=== PATIENT | female | born 1965 | race Caucasian/White ===

== ENCOUNTER 2016-07-07 10:57 | Emergency (ER) | payer OTHER ==
[2016-07-07 11:03] VITALS: BP 143/90; PULSE 80; RESP 18; TEMP 97.9; O2SAT 98
--- NOTE | 2016-07-07 11:28 | ED PDOC ---
HPI: General Adult Time Seen by Provider: 07/07/16 11:06 Chief Complaint (Nursing): Abnormal Skin Integrity Chief Complaint (Provider): Abnormal Skin Integrity History Per: Patient History/Exam Limitations: no limitations Onset/Duration Of Symptoms: Days Current Symptoms Are (Timing): Still Present Severity: Mild Additional Complaint(s): Patient is a 51 year old female who presents to ED for a lump to her left axilla for 1 month. Patient states that the pain is mild but most present at night while trying to sleep. Denies fever, chills, drainage or warmth to the area. Notes she has not had a mammogram in 2 years due to insurance complications. Past Medical History Reviewed: Historical Data, Nursing Documentation, Vital Signs Vital Signs: Last Vital Signs Temp 97.9 F 07/07/16 11:02 Pulse 80 07/07/16 11:02 Resp 18 07/07/16 11:02 BP 143/90 07/07/16 11:02 Pulse Ox 98 07/07/16 13:06 - Medical History PMH: Asthma - Surgical History Surgical History: Appendectomy, Tonsillectomy - Family History Family History: States: CAD - Living Arrangements Living Arrangements: With Family - Allergies Allergies/Adverse Reactions: Allergies Allergy/AdvReac Type Severity Reaction Status Date / Time No Known Allergies Allergy Verified 07/07/16 11:10 Review of Systems ROS Statement: Except As Marked, All Systems Reviewed And Found Negative Constitutional: Negative for: Fever, Chills Cardiovascular: Negative for: Chest Pain Respiratory: Negative for: Shortness of Breath Gastrointestinal: Negative for: Nausea, Vomiting Musculoskeletal: Negative for: Arm Pain Skin: Positive for: Other (Left axilla lump). Negative for: Rash Physical Exam - Reviewed Nursing Documentation Reviewed: Yes Vital Signs Reviewed: Yes - Physical Exam Appears: Positive for: Non-toxic, No Acute Distress Skin: Positive for: Normal Color, Warm Eye Exam: Positive for: Normal appearance Neck: Positive for: Normal Extremity: Positive for: Normal ROM, Other (Left Axilla: (-) lumps, (-) erythema (-) warmth (-) tenderness ) Neurologic/Psych: Positive for: Alert, Oriented - ECG O2 Sat by Pulse Oximetry: 98 (RA) Pulse Ox Interpretation: Normal - Radiology X-Ray: Read By Radiologist (left axilla) X-Ray Interpretation: No Acute Disease - Progress Condition: Re-examined, Unchanged Medical Decision Making Medical Decision Making: Time: 1115 Initial impression: Axilla lump r/o abscess Initial plan: -- U/S soft tissue Time: 1300 U/S results reviewed PROCEDURE: Ultrasound examination of left axilla HISTORY: tenderness and fullness left axilla COMPARISON: Not available TECHNIQUE: Examination of the left axilla was performed utilizing a linear array high- frequency transducer. FINDINGS: There is no solid or cystic mass identified. An unremarkable axillary lymph node is identified measuring 1.8 cm greatest dimension with normal thin cortex. IMPRESSION: No evidence of mass or abscess in the left axilla. Unremarkable examination. Scribe Attestation: Documented by Emely Galloway acting as a scribe for Kathryn Salamanca MD MD Scribe Attestation: All medical record entries made by the Scribe were at my direction and personally dictated by me. I have reviewed the chart and agree that the record accurately reflects my personal performance of the history, physical exam, medical decision making, and the department course for this patient. I have also personally directed, reviewed, and agree with the discharge instructions and disposition. Disposition - Clinical Impression Clinical Impression: Lymph node symptom - Patient ED Disposition Is Patient to be Admitted: No Doctor Will See Patient In The: Office Counseled Patient/Family Regarding: Diagnosis - Disposition Referrals: Rodolfo Rhodes MD [Family Provider] - Disposition: Routine/Home Disposition Time: 14:20 Condition: STABLE Instructions: Lymphadenopathy (GEN) - POA Present On Arrival: None
--- NOTE | 2016-07-07 12:52 | US ---
PROCEDURE: Ultrasound examination of left axilla HISTORY: tenderness and fullness left axilla COMPARISON: Not available TECHNIQUE: Examination of the left axilla was performed utilizing a linear array high-frequency transducer. FINDINGS: There is no solid or cystic mass identified. An unremarkable axillary lymph node is identified measuring 1.8 cm greatest dimension with normal thin cortex. IMPRESSION: No evidence of mass or abscess in the left axilla. Unremarkable examination.
== END 2016-07-07 14:40 | disposition home or self-care (01) ==
LOC: H.ER 10:57
DX: R09.89 Other specified symptoms and signs involving the circulatory and respiratory systems (principal)

== ENCOUNTER 2017-09-17 20:41 | Emergency (ER) | payer OTHER ==
[2017-09-17 20:55] VITALS: RESP 18; O2SAT 100
[2017-09-17] MEDS ORDERED: Sodium Chloride 0.9% 1,000 ML IV STA (21:16)
[2017-09-17] MEDS ORDERED: diaZEpam 10 mg/2 ml Inj IVP ONE (21:16)
[2017-09-17 22:00] LABS: BASO # 0.1 K/uL (0.0-0.2); EOS # 0.1 K/uL (0.0-0.7); EOS % 1.5 % (0.0-4.0); HEMOGLOBIN 13.7 g/dL (12.0-16.0); LYMPH # 2.5 K/uL (1.0-4.3); LYMPH % 27.1 % (20.0-40.0); MEAN CELL VOLUME 82.3 fl (81.0-99.0); MEAN CORPUSCULAR HEMOGLOBIN 26.8 pg (27.0-31.0); MEAN CORPUSCULAR HGB CONC 32.6 g/dL (33.0-37.0); MEAN PLATELET VOLUME 9.5 fl (7.2-11.7); MONO # 0.8 K/uL (0.0-0.8); MONO % 8.6 % (0.0-10.0); NEUT # 5.7 K/uL (1.8-7.0); NEUT % 61.8 % (50.0-75.0); RBC 5.1 Mil/uL (3.80-5.20); RED CELL DISTRIBUTION WIDTH 13.6 % (11.5-14.5); WHITE BLOOD COUNT 9.3 K/uL (4.8-10.8)
--- NOTE | 2017-09-17 22:06 | ED PDOC ---
HPI: Headache Time Seen by Provider: 09/17/17 21:08 Chief Complaint (Nursing): Headache Chief Complaint (Provider): Headache History Per: Patient History/Exam Limitations: no limitations Onset/Duration Of Symptoms: Days (x3) Current Symptoms Are (Timing): Still Present Associated Symptoms: denies: Photophobia, Nausea, Vomiting Additional Complaint(s): 52 year old woman with a pmhx of asthma presents to the emergency department complaining of an occipital headache radiating to forehead, associated with neck stiffness and pain. Patient notes having trouble turning her head, attributing the pain to possibly sleeping in an awkward position. Denies fever, chills, nausea, vomiting, and light sensitivity. PMD: none provided Past Medical History Reviewed: Historical Data, Nursing Documentation, Vital Signs Vital Signs: Last Vital Signs Temp 97.7 F 09/17/17 20:52 Pulse 92 H 09/17/17 20:52 Resp 18 09/17/17 20:52 BP 138/86 09/17/17 20:52 Pulse Ox 100 09/17/17 20:52 - Medical History PMH: Asthma - Surgical History Surgical History: Appendectomy, Tonsillectomy - Family History Family History: States: CAD - Social History Current smoker - smoking cessation education provided: No Alcohol: None Drugs: Denies - Home Medications Home Medications: Ambulatory Orders Medication Instructions Recorded Acetaminophen/Butalbital/Caf 1 - 2 tab PO Q6 PRN #12 tab 09/18/17 [Fioricet] Cyclobenzaprine [Cyclobenzaprine 10 mg PO TID PRN #15 tab 09/18/17 HCl] - Allergies Allergies/Adverse Reactions: Allergies Allergy/AdvReac Type Severity Reaction Status Date / Time No Known Allergies Allergy Verified 09/17/17 20:52 Review of Systems ROS Statement: Except As Marked, All Systems Reviewed And Found Negative Constitutional: Negative for: Fever, Chills Eyes: Negative for: Other (light sensitivity) Gastrointestinal: Negative for: Nausea, Vomiting Musculoskeletal: Positive for: Neck Pain (stiffness, trouble turning head) Neurological: Positive for: Headache (occipital radiating to forehead) Physical Exam - Reviewed Nursing Documentation Reviewed: Yes Vital Signs Reviewed: Yes - Physical Exam Appears: Positive for: Non-toxic, No Acute Distress Head Exam: Positive for: ATRAUMATIC, NORMOCEPHALIC Skin: Positive for: Normal Color, Warm, Dry Eye Exam: Positive for: Normal appearance, EOMI, PERRL Neck: Positive for: Decreased ROM (on external rotation of neck to left). Negative for: Normal (shortening of sternocleidomastoid on right neck) Cardiovascular/Chest: Positive for: Regular Rate, Rhythm. Negative for: Murmur Respiratory: Positive for: Normal Breath Sounds. Negative for: Accessory Muscle Use, Respiratory Distress Gastrointestinal/Abdominal: Positive for: Normal Exam, Soft. Negative for: Tenderness Back: Positive for: Normal Inspection Extremity: Positive for: Normal ROM Neurologic/Psych: Positive for: Alert, Oriented. Negative for: Motor/Sensory Deficits - Laboratory Results Result Diagrams: 09/17/17 21:53 09/17/17 21:53 - ECG O2 Sat by Pulse Oximetry: 100 (RA) Pulse Ox Interpretation: Normal Medical Decision Making Medical Decision Making: Time: 21:15 Initial Impression: 52 year old woman with acute tension headache, torticollis Initial Plan: --CT Head w/o contrast --BMP --Urine --ED Urine dipstick --CBC with differential --Sodium chloride 0.9% 1000ml IV --Toradol 15mg IVP --Valium 10mg IVP Time: [address] FINDINGS: Brain: Unremarkable. No significant white matter disease. No edema. No intracranial mass, mass effect, or midline shift. Ventricles: Unremarkable. No ventriculomegaly. Bones/joints: Unremarkable. No acute fracture. Soft tissues: Unremarkable. Sinuses: Unremarkable as visualized. No acute sinusitis. Mastoid air cells: Unremarkable as visualized. No mastoid effusion. IMPRESSION: No acute intracranial abnormality. Dictated By: Yared Vasquez MD Dictated Date/Time: 09/17/172226 Signed By: Yared Vasquez MD Date Signed: 2226 Transcribed By: ELIZABETH Transcribe Date/Time : 09/17/172226 MARIAM/JORDY Time: 102 Patient reports improvement of symptoms and is stable for discharge. Scribe Attestation: Documented by Criss Chang, acting as a scribe for Ricardo Chang MD. Provider Scribe Attestation: All medical record entries made by the Scribe were at my direction and personally dictated by me. I have reviewed the chart and agree that the record accurately reflects my personal performance of the history, physical exam, medical decision making, and the department course for this patient. I have also personally directed, reviewed, and agree with the discharge instructions and disposition. Disposition - Clinical Impression Clinical Impression: Headache, Torticollis - Disposition Referrals: Rodolfo Rhodes MD [Family Provider] - Disposition: Routine/Home Disposition Time: 01:03 Condition: STABLE Prescriptions: Acetaminophen/Butalbital/Caf [Fioricet] 1 - 2 tab PO Q6 PRN #12 tab PRN Reason: Headache Cyclobenzaprine [Cyclobenzaprine HCl] 10 mg PO TID PRN #15 tab PRN Reason: Muscle Pain Instructions: Torticollis, Adult, Tension Headache (DC) Forms: [facility] (Faroese)
[2017-09-17 22:08] LABS: BLOOD UREA NITROGEN 18 mg/dl (7-17); CALCIUM 9.3 mg/dL (8.4-10.2); GFR AFRICAN-AMERICAN > 60; GFR NON-AFRICAN AMERICAN > 60
--- NOTE | 2017-09-17 22:28 | CT ---
EXAM: CT Head Without Intravenous Contrast CLINICAL HISTORY: 52 years old, female; Pain; Headache; Other: Paz's blurred vision; Patient HX: Partial thyroidectomy. Tonsillectomy TECHNIQUE: Axial computed tomography images of the head/brain without intravenous contrast. All CT scans at this facility use one or more dose reduction techniques, viz.: automated exposure control; ma/kV adjustment per patient size (including targeted exams where dose is matched to indication; i.e. head); or iterative reconstruction technique. Coronal and sagittal reformatted images were created and reviewed. COMPARISON: CT - HEAD W/O CONTRAST 2015-04-08 09:31 FINDINGS: Brain: Unremarkable. No significant white matter disease. No edema. No intracranial mass, mass effect, or midline shift. Ventricles: Unremarkable. No ventriculomegaly. Bones/joints: Unremarkable. No acute fracture. Soft tissues: Unremarkable. Sinuses: Unremarkable as visualized. No acute sinusitis. Mastoid air cells: Unremarkable as visualized. No mastoid effusion. IMPRESSION: No acute intracranial abnormality.
[2017-09-17] MEDS ORDERED: Morphine 4 MG/ML VIAL ONE (23:45)
[2017-09-18 01:21] VITALS: BP 130/80; PULSE 90; TEMP 97.8
== END 2017-09-18 01:19 | disposition home or self-care (01) ==
LOC: H.ER 20:41
DX: M43.6 Torticollis (principal); G44.209 Tension-type headache, unspecified, not intractable; J45.909 Unspecified asthma, uncomplicated; Z82.49 Family history of ischemic heart disease and other diseases of the circulatory system; R51 Headache
CPT/HCPCS: 70450; 80048; 85025; 96375; 99285; J1885; J2270; J7030